=== PATIENT | female | born 1980 | race Caucasian/White ===

== ENCOUNTER 2017-04-28 09:00 | Outpatient (CLI) | payer OTHER | END 2017-04-28 09:29 | disposition home or self-care (01) | LOC: LAB 09:00 | DX: E03.8 Other specified hypothyroidism (principal); E78.00 Pure hypercholesterolemia, unspecified; E11.65 Type 2 diabetes mellitus with hyperglycemia; D72.0 Genetic anomalies of leukocytes; D69.49 Other primary thrombocytopenia; J45.30 Mild persistent asthma, uncomplicated; E06.3 Autoimmune thyroiditis; D51.3 Other dietary vitamin B12 deficiency anemia; D51.1 Vitamin B12 deficiency anemia due to selective vitamin B12 malabsorption with proteinuria; R73.01 Impaired fasting glucose; D50.8 Other iron deficiency anemias; D51.8 Other vitamin B12 deficiency anemias; I10 Essential (primary) hypertension; D68.8 Other specified coagulation defects; D55.0 Anemia due to glucose-6-phosphate dehydrogenase [G6PD] deficiency; D51.0 Vitamin B12 deficiency anemia due to intrinsic factor deficiency ==

== ENCOUNTER 2017-08-11 09:17 | Outpatient (CLI) | payer OTHER | END 2017-08-11 09:24 | disposition home or self-care (01) | LOC: LAB 09:17 | DX: D72.0 Genetic anomalies of leukocytes (principal); D69.49 Other primary thrombocytopenia; J45.30 Mild persistent asthma, uncomplicated; E06.3 Autoimmune thyroiditis; D51.3 Other dietary vitamin B12 deficiency anemia; D51.1 Vitamin B12 deficiency anemia due to selective vitamin B12 malabsorption with proteinuria; R73.01 Impaired fasting glucose; E03.8 Other specified hypothyroidism; B18.9 Chronic viral hepatitis, unspecified; R79.89 Other specified abnormal findings of blood chemistry; R94.5 Abnormal results of liver function studies ==

== ENCOUNTER 2019-02-11 15:36 | Outpatient (CLI) | payer OTHER | END 2019-02-11 15:46 | disposition home or self-care (01) | LOC: LAB 15:36 | DX: D72.0 Genetic anomalies of leukocytes (principal); D69.49 Other primary thrombocytopenia; J45.30 Mild persistent asthma, uncomplicated; E06.3 Autoimmune thyroiditis; D51.3 Other dietary vitamin B12 deficiency anemia; D51.1 Vitamin B12 deficiency anemia due to selective vitamin B12 malabsorption with proteinuria; R73.01 Impaired fasting glucose; E03.8 Other specified hypothyroidism; R94.5 Abnormal results of liver function studies; D68.8 Other specified coagulation defects; D50.8 Other iron deficiency anemias; D51.8 Other vitamin B12 deficiency anemias; I10 Essential (primary) hypertension ==

== ENCOUNTER → 2019-02-12 13:08 | Outpatient (CLI) | payer OTHER | END | disposition home or self-care (01) | LOC: LAB 13:08 | DX: D72.0 Genetic anomalies of leukocytes (principal); D69.49 Other primary thrombocytopenia; J45.998 Other asthma; E06.3 Autoimmune thyroiditis; D51.3 Other dietary vitamin B12 deficiency anemia; D51.1 Vitamin B12 deficiency anemia due to selective vitamin B12 malabsorption with proteinuria; R73.01 Impaired fasting glucose; E03.8 Other specified hypothyroidism; R94.5 Abnormal results of liver function studies; N39.0 Urinary tract infection, site not specified ==

== ENCOUNTER 2019-08-20 13:52 | Outpatient (CLI) | payer OTHER | END 2019-08-20 14:12 | disposition home or self-care (01) | LOC: SONOGRAMA 13:52 | DX: E03.8 Other specified hypothyroidism (principal); D69.49 Other primary thrombocytopenia; D72.0 Genetic anomalies of leukocytes; Z68.38 Body mass index [BMI] 38.0-38.9, adult ==

== ENCOUNTER 2019-08-21 07:16 | Outpatient (CLI) | payer OTHER | END 2019-08-21 07:27 | disposition home or self-care (01) | LOC: LAB 07:16 | DX: E03.8 Other specified hypothyroidism (principal); D69.49 Other primary thrombocytopenia; D72.0 Genetic anomalies of leukocytes; Z68.38 Body mass index [BMI] 38.0-38.9, adult; E55.9 Vitamin D deficiency, unspecified; E78.49 Other hyperlipidemia; E11.21 Type 2 diabetes mellitus with diabetic nephropathy ==

== ENCOUNTER 2020-05-27 07:09 | Outpatient (CLI) | payer OTHER | END 2020-05-27 07:20 | disposition home or self-care (01) | LOC: LAB 07:09 | PROVIDERS: ATTEND Internal Medicine | DX: E03.8 Other specified hypothyroidism (principal); E11.69 Type 2 diabetes mellitus with other specified complication; E55.9 Vitamin D deficiency, unspecified; D69.8 Other specified hemorrhagic conditions; D72.0 Genetic anomalies of leukocytes; Z68.39 Body mass index [BMI] 39.0-39.9, adult ==

== ENCOUNTER 2023-05-29 09:57 | Outpatient (CLI) | payer OTHER ==
[2023-05-29 11:30] LABS: HEMATOCRIT 46.7 % (36.0-45.00); HEMOGLOBIN 15.5 g/dL (12.0-15.00); MEAN CELL VOLUME 88.4 fL (80.00-100.00); MEAN CORPUSCULAR HEMOGLOBIN 29.4 pg (27.00-32.0); MEAN CORPUSCULAR HGB CONC 33.3 g/dl (32.0-36.0); RED BLOOD COUNT 5.29 M/uL (4.00-6.00); RED CELL DISTRIBUTION WIDTH 15.5 % (11.5-14.5)
[2023-05-29 11:37] LABS: PROTHROMBIN TIME 10.5 SECONDS (9.0-11.5)
[2023-05-29 11:45] LABS: % SATURACION 21.2 % (15-50); BILIRUBIN TOTAL 0.51 mg/dL (0.3-1.2); CALCIUM 9.1 mg/dL (8.5-10.1); CREATININE SERUM 0.63 mg/dL (0.55-1.02); GFR 103.14; GLOBULINA 3.5 G/DL (2.4-3.5); POTASSIUM 3.77 mEq/L (3.5-5.1); TOTAL PROTEIN 7.5 gm/dL (6.4-8.2)
[2023-05-29 11:50] LABS: COL EPI 170 SECONDS (82-175)
[2023-05-29 12:09] LABS: PT 50:50 10.2 SECONDS (9.7-11.4); PTT 50:50 27.1 SECONDS (22.4-33.0)
[2023-05-29 12:10] LABS: FOLIC ACID > 20.00 ng/ml (4.78-20)
[2023-05-30 12:21] LABS: MANUAL PLATELET COUNT 70
[2023-05-30 12:37] LABS: PLATELET ESTIMATE DECREASED (NORMAL)
[2023-05-30 12:41] LABS: PLATELET COUNT 12 K/uL (150-450)
== END 2023-05-29 09:58 | disposition home or self-care (01) ==
LOC: LAB 09:57
PROVIDERS: ATTEND Internal Medicine Hematology & Oncology
DX: D72.0 Genetic anomalies of leukocytes (principal); D69.49 Other primary thrombocytopenia; D51.1 Vitamin B12 deficiency anemia due to selective vitamin B12 malabsorption with proteinuria; J45.30 Mild persistent asthma, uncomplicated; E06.3 Autoimmune thyroiditis; R73.01 Impaired fasting glucose; E03.8 Other specified hypothyroidism; R94.5 Abnormal results of liver function studies

== ENCOUNTER 2023-12-04 08:03 | Outpatient (CLI) | payer OTHER ==
[2023-12-04 09:02] LABS: HEMOGLOBIN 14.1 g/dL (12.0-15.00); MEAN CELL VOLUME 89.8 fL (80.00-100.00); MEAN CORPUSCULAR HEMOGLOBIN 30.3 pg (27.00-32.0); MEAN CORPUSCULAR HGB CONC 33.7 g/dl (32.0-36.0); RED BLOOD COUNT 4.67 M/uL (4.00-6.00); RED CELL DISTRIBUTION WIDTH 14.6 % (11.5-14.5)
[2023-12-04 09:35] LABS: INR 1.03; PARTIAL THROMBOPLASTIN TIME 30.4 SECONDS (22.0-34.0); PROTHROMBIN TIME 11.2 SECONDS (9.0-11.5)
[2023-12-04 09:40] LABS: COL EPI 144 SECONDS (82-175)
[2023-12-04 09:56] LABS: % SATURACION 17.7 % (15-50); ALBUMIN 4.2 gm/dL (3.4-5.0); BILIRUBIN TOTAL 0.49 mg/dL (0.3-1.2); CALCIUM 8.8 mg/dL (8.5-10.1); CHOL HDL RATIO 2.3 (0-5.0); CREATININE SERUM 0.71 mg/dL (0.55-1.02); FERRITIN 62.9 NG/ML (8-252); GFR 89.43; GLOBULINA 3.5 G/DL (2.4-3.5); POTASSIUM 3.91 mEq/L (3.5-5.1); TOTAL PROTEIN 7.7 gm/dL (6.4-8.2); TSH 3.08 uIU/mL (0.358-3.74)
[2023-12-04 09:57] LABS: PT 50:50 10.5 SECONDS (9.7-11.4)
[2023-12-04 09:58] LABS: PTT 50:50 27.4 SECONDS (22.4-33.0)
[2023-12-04 10:05] LABS: PLATELET COUNT 11 K/uL (150-450)
[2023-12-04 10:06] LABS: MANUAL PLATELET COUNT 94
[2023-12-04 10:07] LABS: PLATELET ESTIMATE DECREASED (NORMAL)
[2023-12-04 12:10] LABS: FOLIC ACID 19.59 ng/ml (4.78-20)
== END 2023-12-04 08:12 | disposition home or self-care (01) ==
LOC: LAB 08:03
PROVIDERS: ATTEND Internal Medicine Hematology & Oncology
DX: E03.9 Hypothyroidism, unspecified (principal); E11.9 Type 2 diabetes mellitus without complications; E78.2 Mixed hyperlipidemia; D50.9 Iron deficiency anemia, unspecified; R79.9 Abnormal finding of blood chemistry, unspecified; I10 Essential (primary) hypertension; R74.02 Elevation of levels of lactic acid dehydrogenase [LDH]; K76.89 Other specified diseases of liver; D68.8 Other specified coagulation defects; D69.1 Qualitative platelet defects; D72.0 Genetic anomalies of leukocytes; D69.49 Other primary thrombocytopenia; D51.3 Other dietary vitamin B12 deficiency anemia; D51.1 Vitamin B12 deficiency anemia due to selective vitamin B12 malabsorption with proteinuria; J45.30 Mild persistent asthma, uncomplicated; E06.3 Autoimmune thyroiditis; R73.01 Impaired fasting glucose; E03.8 Other specified hypothyroidism; R94.5 Abnormal results of liver function studies